=== PATIENT | female | born 1975 | race Asian ===

== ENCOUNTER → 2018-05-17 | Outpatient (CLI) | payer OTHER ==
[~2018-05-17] MED LIST: LIDOCAINE 100 MG SYRINGE ONE
[2018-05-17 12:47] VITALS: BP 150/80; PULSE 53; RESP 20
[2018-05-17 13:14] VITALS: BP 148/71; PULSE 56; RESP 20
== END | disposition home or self-care (01) ==
LOC: EDSTATUS 11:00 → U/S 11:19
PROVIDERS: ATTEND Otolaryngology Otolaryngology/Facial Plastic Surgery
DX: D11.0 Benign neoplasm of parotid gland (principal)
CPT/HCPCS: J2001